=== PATIENT | male | born 1985 | race Caucasian/White ===

== ENCOUNTER 2016-06-14 07:18 | Emergency (ER) | payer MEDICAID ==
[~2016-06-14] VITALS: Wt 106.5 kg
[~2016-06-14 07:18] MED LIST: ENAL10TA78 PO; HYDR-762 PO; IBUP800T25 PO
[2016-06-14 08:30] LABS: BASOPHILS % 0.2 % (0.0-2.0); EOSINOPHILS # 0.1 10^3/ul (0.0-0.5); HEMATOCRIT 49.7 % (42.0-52.0); HEMOGLOBIN 17.1 g/dl (14.0-18.0); LYMPHOCYTES # 2.1 10^3/ul (0.8-2.9); LYMPHOCYTES % 25.7 % (15.0-51.0); MEAN CORPUSCULAR HEMOGLOBIN 30.4 pg (29.0-33.0); MEAN CORPUSCULAR HGB CONC 34.4 g/dl (32.0-37.0); MEAN CORPUSCULAR VOLUME 88.6 fl (82.0-101.0); MEAN PLATELET VOLUME 8.1 fl (7.4-10.4); MONOCYTE # 0.4 10^3/ul (0.3-0.9); MONOCYTES % 5.2 % (0.0-11.0); NEUTROPHIL # 5.4 10^3/ul (1.6-7.5); NEUTROPHILS % 67.9 % (39.0-77.0); PLATELET COUNT 240 10^3/UL (140-440); RED BLOOD COUNT 5.61 10^6/ul (4.70-6.10); RED CELL DISTRIBUTION WIDTH 13.1 % (11.5-14.5)
[2016-06-14] MEDS ORDERED: IBUPROFEN 800 MG TAB PO ONE (08:30)
[2016-06-14 08:32] LABS: CONDITION 1
[2016-06-14 08:37] LABS: ALBUMIN 4.9 g/dl (3.3-4.9)
[2016-06-14 08:38] LABS: POTASSIUM 4.2 mmol/L (3.5-5.1)
[2016-06-14 08:40] LABS: ALBUMIN/GLOBULIN RATIO 1.4; BILIRUBIN,INDIRECT 0.5 mg/dl (0-1.1); BILIRUBIN,TOTAL 0.5 mg/dl (0.2-1.3); CREATININE 1.06 mg/dl (0.61-1.24); TOTAL PROTEIN 8.4 g/dl (6.1-8.1)
--- NOTE | 2016-06-14 08:40 | RADRPT ---
PROCEDURE: CT Abdomen and Pelvis without contrast. CLINICAL INDICATION: Abdominal pain radiating to the back TECHNIQUE: CT scan of the abdomen and pelvis without contrast was performed. The patient was scann ed without intravenous contrast. Coronal and sagittal reformatted images were obtained from the axi al source images. Use of iterative reconstruction technique was employed. Images were reviewed on a high-resolution PACS workstation. images. The calculated radiation dose measures 1175.96 mGy centime ters. The CTDI measures 18.78 mGy. One or more of the following dose reduction techniques were used: - Automated exposure control. - Adjustment of the mA and/or kV according to patient size . - Use of iterative reconstruction technique. Images were reviewed on a high-resolution PACS workstation COMPARISON: Multiple priors most recent from 11/26/2059 FINDINGS: CT abdomen: The lung bases are clear. The heart size is normal, without pericardial thickening or effusion. Th e liver is normal in size and density without focal mass or intrahepatic biliary dilatation. The sp jay is normal in size and homogeneous in density. The stomach is partially collapsed, but is gross ly unremarkable. The pancreas as visualized is normal. The gallbladder and biliary tree are unrem arkable and there is no evidence for biliary dilatation. The adrenal glands are symmetric and lu l. There are 2 calculus seen within the left mid pole of the kidney the largest measuring 3 mm. A 3 mm calculus also seen at the right lower pole of the kidney and a punctate calculus at the mid charlotte e. No evidence for hydronephrosis or hydroureter. No evidence for urolithiasis. The bladder is pa rtially collapsed. There is an approximately 7 mm calculus at the right base of the bladder, unchan ged in appearance. The aorta is of normal caliber. There is no retroperitoneal lymphadenopathy. The brennen hepatis reg ion is clear. The bowel and mesentery, as visualized, are equally unremarkable. CT pelvis: The small bowel loops situated within the pelvis are unremarkable. The pelvic organs are normal. T he pelvic sidewalls and inguinal regions are clear. The sigmoid colon and rectum are not thickened or dilated.. No mass, lymphadenopathy, or free fluid is seen. No acute inflammation is seen. The surrounding osseous structures are remarkable for degenerative spondylosis of the spine. There are scattered bone islands noted about the femoral bilaterally. There is a larger sclerotic lesion with a lucent center in the left intertrochanteric region representing a benign fibro-osseous lesion , no interval change is seen. IMPRESSION: 1. Up to 7 mm bladder calculus seen near the right UVJ junction without hydronephrosis or hydrouret er. The appearance is similar as on the prior study. 2. Additional calculi seen within the kidneys bilaterally. No evidence for hydronephrosis or hydro ureter. 3. Normal unenhanced appearance of the appendix. RPTAT: PP .David Patterson MD, Date Time Electronically viewed and signed by .David Patterson MD, on 06/14/2016 08:40 .d/
[2016-06-14 08:41] LABS: CALCIUM 9.8 mg/dl (8.4-10.2)
[2016-06-14 08:44] LABS: ADD UMIC YES; URINE BILIRUBIN (Dip) NEGATIVE (NEGATIVE); URINE BLOOD (Dip) 1+ (NEGATIVE); URINE COLOR LT. YELLOW (YELLOW); URINE GLUCOSE (Dip) NEGATIVE (NEGATIVE); URINE KETONES (Dip) NEGATIVE (NEGATIVE); URINE LEUKOCYTE ESTERASE (Dip) NEGATIVE (NEGATIVE); URINE NITRITE (Dip) NEGATIVE (NEGATIVE); URINE TOTAL PROTEIN (Dip) NEGATIVE (NEGATIVE); URINE UROBILINOGEN (Dip) 0.2 E.U./dL (0.1-1.0)
[2016-06-14] MEDS ORDERED: IBUP800T25 PO (08:50)
[2016-06-14] MEDS ORDERED: ONDA4TAB14 PO (08:50)
[2016-06-14] MEDS ORDERED: HYDR-902 PO (08:50)
--- NOTE | 2016-06-14 08:58 | ERD ---
ER Documentation Chief Complaint Date/Time DATE: 06/14/16 TIME: 08:55 Chief Complaint LEFT SIDE ABD PAIN X1 WEEK, ON AND OFF NAUSEA HPI 30-year-old male no past medical history other than borderline hypertension presents with left flank pain. He describes colicky left-sided flank pain to the left lower quadrant for approximately 1 week. He denies any testicular pain or swelling. He denies any dysuria urgency or frequency. He does have a history of kidney stones but states that this feels slightly different and the patient had some urinary symptoms during that time. He has not taken anything for pain. He denies any lumbar back pain. ROS All systems reviewed and are negative except as per history of present illness. Medications Home Meds Active Scripts Ondansetron (Ondansetron Odt) 4 Mg Tab.rapdis, 4 MG PO Q6H Y for NAUSEA AND/OR VOMITING, #30 TAB Prov:PRISCILA VAZ MD 06/14/16 Ibuprofen* (Motrin*) 800 Mg Tab, 800 MG PO Q6H Y for PAIN AND OR ELEVATED TEMP, #30 TAB Prov:PRISCILA VAZ MD 06/14/16 Hydrocodone/Acetaminophen ([place] 10-325 Tablet) 1 Each Tablet, 1 TAB PO Q6H Y for PAIN, #12 TAB Prov:PRISCILA VAZ MD 06/14/16 Hydrocodone Bit-Acetaminophen* ([place]*) 10-325 Mg Tablet, 1 TAB PO Q6 Y for PAIN , #20 TAB Prov:MARCELLE HAAS PA-C 11/26/15 Ibuprofen* (Motrin*) 800 Mg Tab, 800 MG PO Q6H Y for PAIN AND OR ELEVATED TEMP, #30 TAB Prov:MARCELLE HAAS PA-C 11/26/15 Reported Medications Enalapril Maleate* (Vasotec*) 10 Mg Tablet, 10 MG PO DAILY, TAB 03/17/14 Allergies Allergies: Coded Allergies: No Known Allergies (Verified Allergy, Mild, 03/18/14) PMhx/Soc History of Surgery: No Anesthesia Reaction: No Hx Neurological Disorder: No Hx Respiratory Disorders: No Hx Cardiac Disorders: No Hx Psychiatric Problems: No Hx Miscellaneous Medical Probl: No Hx Alcohol Use: No Hx Substance Use: No Hx Tobacco Use: No FmHx Family History: No diabetes Physical Exam Vitals Vital Signs Date Time Temp Pulse Resp B/P Pulse Ox O2 Delivery O2 Flow Rate FiO2 06/14/16 07:22 97.5 63 17 147/77 98 Physical Exam General: Well developed, well nourished, no acute distress Head: Normocephalic, atraumatic. Eyes: Pupils equally reactive, EOM intact ENT: Moist mucous membranes Neck: Supple, no lymphadenopathy Respiratory: Lungs clear bilaterally, no distress Cardiovascular: RRR, no murmurs, rubs, or gallops Abdominal: Soft, mild intermittent focal tenderness left lower quadrant without rebound or guarding, no inguinal hernia : Normal descended testicles bilateral without swelling, intact reflexes MSK: No edema, no unilateral swelling, 5/5 strength Neurologic: Alert and oriented, moving all extremities, normal speech, no focal weakness, no cerebellar signs Skin: No rash Psych: Normal mood Result Diagram: 06/14/16 0815 06/14/16 0815 Results 24 hrs Laboratory Tests Test 06/14/16 08:15 Alanine Aminotransferase (ALT/SGPT) 45IU/L Albumin 4.9g/dl Albumin/Globulin Ratio 1.40 Alkaline Phosphatase 76IU/L Anion Gap 19 Aspartate Amino Transf (AST/SGOT) 38IU/L Basophils # 0.010^3/ul Basophils % 0.2% Blood Urea Nitrogen 15mg/dl Calcium Level 9.8mg/dl Carbon Dioxide Level 28mmol/L Chloride Level 102mmol/L Creatinine 1.06mg/dl Direct Bilirubin 0.00mg/dl Eosinophils # 0.110^3/ul Eosinophils % 1.0% Globulin 3.50g/dl Glucose Level 95mg/dl Hematocrit 49.7% Hemoglobin 17.1g/dl Indirect Bilirubin 0.5mg/dl Lipase 124U/L Lymphocytes # 2.110^3/ul Lymphocytes % 25.7% Mean Corpuscular Hemoglobin 30.4pg Mean Corpuscular Hemoglobin Concent 34.4g/dl Mean Corpuscular Volume 88.6fl Mean Platelet Volume 8.1fl Monocytes # 0.410^3/ul Monocytes % 5.2% Neutrophils # 5.410^3/ul Neutrophils % 67.9% Nucleated Red Blood Cells # 0.010^3/ul Nucleated Red Blood Cells % 0.0/100WBC Platelet Count 84480^3/UL Potassium Level 4.2mmol/L Red Blood Count 5.6110^6/ul Red Cell Distribution Width 13.1% Sodium Level 145mmol/L Total Bilirubin 0.5mg/dl Total Protein 8.4g/dl Urine Bilirubin NEGATIVE Urine Clarity CLEAR Urine Color LT. YELLOW Urine Glucose NEGATIVE% Urine Hemoglobin 1+ Urine Ketones NEGATIVE Urine Leukocyte Esterase NEGATIVE Urine Microscopic RBC 5-10/HPF Urine Microscopic WBC 2-5/HPF Urine Nitrite NEGATIVE Urine Specific [place] 1.015 Urine Total Protein NEGATIVE Urine Urobilinogen 0.2 E.U./dL Urine pH 5.5 White Blood Count 8.010^3/ul Current Medications Medications (Trade) Dose Ordered Sig/Shari Route PRN Reason Start Time Stop Time Status Last Admin Dose Admin Ibuprofen (Motrin) 800 mg ONCE ONCE PO 06/14/16 08:30 06/14/16 08:31 DC 06/14/16 08:21 Procedures/MDM EKG, MONITORS, & DIAGNOSTIC IMAGING: CT abdomen and pelvis: IMPRESSION: 1. Up to 7 mm bladder calculus seen near the right UVJ junction without hydronephrosis or hydroureter. The appearance is similar as on the prior study. 2. Additional calculi seen within the kidneys bilaterally. No evidence for hydronephrosis or hydroureter. 3. Normal unenhanced appearance of the appendix. LAB INTERPRETATION: No leukocytosis, no renal failure MEDICAL DECISION MAKING: The patient presents with flank pain that is colicky. He does describe a history of kidney stones with states this feels different. Differential includes UTI, pyelonephritis, ureterolithiasis among others. Consider possible muscular skeletal etiology as well. Low concern for dissection. No evidence of acute testicular process such as torsion, no evidence of hernia. ER COURSE: The patient was given Motrin with improved symptoms. His laboratory testing is unrevealing and CT imaging shows evidence of a bladder stone however this is on the right side. I am not convinced that this is necessarily causing the patient 's pain but it is possible. He has no evidence of complication such as infection, hydronephrosis or renal insufficiency. Outpatient urology referral would be appropriate. The patient will be given pain control medication referral information to primary care physician and primary care clinics at the [facility]. I kept the patient and/or family informed of laboratory and diagnostic imaging results throughout the emergency room course. DISPOSITION PLAN: We discussed follow up with the patient's primary care doctor within 24 to 48 hours as needed. We also discussed return to the emergency room for worsening symptoms or worsening condition. Discharge Medications: Shabbona, Zofran, Motrin We discussed the use of narcotics including avoidance of operating heavy machinery and driving as well as its addictive properties. Departure Diagnosis: Primary Impression: Left flank pain Additional Impressions: Kidney stone Bladder calculus Condition: Stable Patient Instructions: Kidney Stone W/ Colic Referrals: VIKASH NATHAN MD, RICHARD MD [facility] () Usted se haynes hecho un examen mdico de control que le indica que no est en monik condicin que requiera tratamiento urgente en el Departamento de Emergencia. Un estudio ms profundo y el tratamiento de hartman condicin pueden esperar sin ningn riesgo hasta que usted sea atendida/o en el consultorio de hartman mdico o monik cl javier. Es responsabilidad suya arreglar monik dave para el seguimiento del sravanthi. MANEJO DE CONDICIONES NO URGENTES EN EL FUTURO 1) Si usted tiene un mdico de atencin primaria: Usted debera llamar a hartman mdico de atencin primaria antes de venir al departamento de emergencia. Despus de las horas de consultorio, hartman doctor o hartman asociado/a est disponible por telfono. El mdico o enfermero de [place] en el servicio telefnico puede asesorarle por anastacio medio para atender el problema, o sravanthi contrario se puede programar monik dave. 2) Si usted no tiene un mdico de atencin primaria: Llame al mdico o clnica de referencia que aparece abajo brandy las horas de consultorio para hacer monik dave para que le vean. CLINICAS: [facility] 624 [phone] [address] [facility] 996 [phone] [address] [facility] 227 [phone] [address] [facility] [phone] [address] [facility]. [facility] 721 [phone] [address] [facility]. [phone] [address] [facility]. [facility] () Usted se haynes hecho un examen mdico de control que le indica que no est en monik condicin que requiera tratamiento urgente en el Departamento de Emergencia. Un estudio ms profundo y el tratamiento de hartman condicin pueden esperar sin ningn riesgo hasta que usted sea atendida/o en el consultorio de hartman mdico o monik cl javier. Es responsabilidad suya arreglar monki dave para el seguimiento del sravanthi. MANEJO DE CONDICIONES NO URGENTES EN EL FUTURO 1) Si usted tiene un mdico de atencin primaria: Usted debera llamar a hartman mdico de atencin primaria antes de venir al departamento de emergencia. Despus de las horas de consultorio, hartman doctor o hartman asociado/a est disponible por telfono. El mdico o enfermero de [place] en el servicio telefnico puede asesorarle por anastacio medio para atender el problema, o sravanthi contrario se puede programar monik dave. 2) Si usted no tiene un mdico de atencin primaria: Llame al mdico o condado institucions de referencia que aparece abajo brandy las horas de consultorio para hacer monik dave para que le vean. SI USTED NO PUEDE PAGAR PARA NATHANIEL UN MEDICO puede ir a: [facility] [address] [place] [address] [facility] [address] [place] [address] [facility] [address] [place] [address] PARA [facility] [address] [place] [address] [facility] Urology for kidney stone Additional Instructions: It is very important that you follow-up with a urologist as you may require lithotripsy or retrieval of the stone if symptoms do not improve. Llame al doctor nombrado davion (Referral Sources) MAANA y letha monik DAVE PARA DENTRO DE MONIK SEMANA. Dgale a la secretaria que nosotros le instruimos hacer esta dave.Avise o llame si hartman condicin se empeora antes de la dave. PRISCILA VAZ MD Jun 14, 2016 08:58
== END 2016-06-14 09:36 | disposition home or self-care (01) ==
LOC: FTE 07:18
DX: R10.9 Unspecified abdominal pain (principal); N20.0 Calculus of kidney; N21.0 Calculus in bladder
CPT/HCPCS: 36415; 74176; 80053; 81001; 83690; 85025; Z7502; Z7610; 81003

== ENCOUNTER 2016-10-08 18:19 | Emergency (ER) | payer MEDICAID, OTHER ==
[~2016-10-08] VITALS: Ht 182.9 cm; Wt 111.5 kg
[~2016-10-08 18:19] MED LIST changes: +HYDR-902 PO; +ONDA4TAB14 PO
[2016-10-08 18:22] VITALS: Ht 182.9 cm; Wt 111.5 kg
[2016-10-08] MEDS ORDERED: KETOROLAC 30 MG INJ IV STA (18:46)
--- NOTE | 2016-10-08 18:55 | ERD ---
ER Documentation Chief Complaint Date/Time DATE: 10/08/16 TIME: 18:53 Chief Complaint Paztient complains of back and abdominal pain since yesterday HPI 31-year-old male with history of kidney stones comes in with right-sided flank pain that started yesterday afternoon after lifting heavy. Patient's pain is described as moderate and sharp and starts in the right flank and radiates to the right upper quadrant. There is no associated fevers, chills, vomiting or diarrhea. ROS All systems reviewed and are negative except as per history of present illness. Medications Home Meds Active Scripts Tamsulosin Hcl* (Flomax*) 0.4 Mg Cap.er.24h, 0.4 MG PO BID, #30 CAP Prov:RONNIE ZEPEDA PA-C 10/08/16 Naproxen* (Naprosyn*) 500 Mg Tablet, 500 MG PO BID Y for PAIN AND/OR INFLAMMATION, #30 TAB Prov:RONNIE ZEPEDA PA-C 10/08/16 Ondansetron (Ondansetron Odt) 4 Mg Tab.rapdis, 4 MG PO Q6H Y for NAUSEA AND/OR VOMITING, #30 TAB Prov:PRISCILA VAZ MD 06/14/16 Ibuprofen* (Motrin*) 800 Mg Tab, 800 MG PO Q6H Y for PAIN AND OR ELEVATED TEMP, #30 TAB Prov:PRISCILA VAZ MD 06/14/16 Hydrocodone/Acetaminophen (Ceres 10-325 Tablet) 1 Each Tablet, 1 TAB PO Q6H Y for PAIN, #12 TAB Prov:PRISCILA VAZ MD 06/14/16 Hydrocodone Bit-Acetaminophen* (Ceres*) 10-325 Mg Tablet, 1 TAB PO Q6 Y for PAIN , #20 TAB Prov:MARCELLE HAAS PA-C 11/26/15 Ibuprofen* (Motrin*) 800 Mg Tab, 800 MG PO Q6H Y for PAIN AND OR ELEVATED TEMP, #30 TAB Prov:MARCELLE HAAS PA-C 11/26/15 Reported Medications Enalapril Maleate* (Vasotec*) 10 Mg Tablet, 10 MG PO DAILY, TAB 03/17/14 Allergies Allergies: Coded Allergies: No Known Allergies (Verified Allergy, Mild, 10/08/16) PMhx/Soc History of Surgery: No Anesthesia Reaction: No Hx Neurological Disorder: No Hx Respiratory Disorders: No Hx Cardiac Disorders: Yes (HTN) Hx Psychiatric Problems: No Hx Miscellaneous Medical Probl: No Hx Alcohol Use: Yes (SOCIALLY) Hx Substance Use: No Hx Tobacco Use: No Smoking Status: Never smoker Physical Exam Vitals Vital Signs Date Time Temp Pulse Resp B/P Pulse Ox O2 Delivery O2 Flow Rate FiO2 10/08/16 18:22 98.3 84 20 155/91 97 Physical Exam General: Well-developed, well-nourished. The patient appears in no acute distress. HEENT: Head is normocephalic, atraumatic. No scleral icterus. Neck: Supple. Nontender. Lungs: Clear to auscultation. Normal air movement. Heart: Regular rate and rhythm. S1 and S2 are normal. No murmurs, gallops, or rubs. Abdomen: Soft, nontender, nondistended. Bowel sounds are normoactive. Diffuse soft tissue tenderness over the right flank and right upper quadrant, no CVA tenderness. Extremities: No clubbing or cyanosis. Normal pulses. Moving extremities x 4. No weakness. Neurologic: Alert and oriented 3. No focal deficits. Skin: Normal turgor. No rash or lesions. Result Diagram: 10/08/16190410/08/161904 Results 24 hrs Laboratory Tests Test 10/08/16 18:50 10/08/16 19:05 Urine Color LT. YELLOW Urine Clarity CLEAR Urine pH 5.5 Urine Specific [place] <=1.005 Urine Ketones NEGATIVE Urine Nitrite NEGATIVE Urine Bilirubin NEGATIVE Urine Urobilinogen 0.2 E.U./dL Urine Leukocyte Esterase NEGATIVE Urine Microscopic RBC 2-5/HPF Urine Microscopic WBC NONE SEEN/HPF Urine Hemoglobin 1+ Urine Glucose NEGATIVE% Urine Total Protein NEGATIVE White Blood Count 10.710^3/ul Red Blood Count 5.4310^6/ul Hemoglobin 16.1g/dl Hematocrit 47.4% Mean Corpuscular Volume 87.3fl Mean Corpuscular Hemoglobin 29.7pg Mean Corpuscular Hemoglobin Concent 34.0g/dl Red Cell Distribution Width 12.1% Platelet Count 98585^3/UL Mean Platelet Volume 9.8fl Neutrophils % 67.5% Lymphocytes % 24.1% Monocytes % 6.4% Eosinophils % 0.9% Basophils % 0.3% Nucleated Red Blood Cells % 0.0/100WBC Neutrophils # 7.210^3/ul Lymphocytes # 2.610^3/ul Monocytes # 0.710^3/ul Eosinophils # 0.110^3/ul Basophils # 0.010^3/ul Nucleated Red Blood Cells # 0.010^3/ul Sodium Level 142mmol/L Potassium Level 4.3mmol/L Chloride Level 105mmol/L Carbon Dioxide Level 26mmol/L Anion Gap 15 Blood Urea Nitrogen 18mg/dl Creatinine 1.12mg/dl Glucose Level 89mg/dl Calcium Level 10.3mg/dl Total Bilirubin 0.1mg/dl Direct Bilirubin 0.00mg/dl Indirect Bilirubin 0.1mg/dl Aspartate Amino Transf (AST/SGOT) 42IU/L Alanine Aminotransferase (ALT/SGPT) 51IU/L Alkaline Phosphatase 92IU/L Total Protein 7.8g/dl Albumin 5.0g/dl Globulin 2.80g/dl Albumin/Globulin Ratio 1.78 Lipase 144U/L Current Medications Medications (Trade) Dose Ordered Sig/Shari Route PRN Reason Start Time Stop Time Status Last Admin Dose Admin Ketorolac Tromethamine (Toradol) 30 mg ONCE STAT IV 10/08/16 18:46 10/08/16 18:48 DC 10/08/16 19:09 DIAGNOSTIC IMAGING REPORT Patient: YUNG TOBAR : 1985 Age: 31 Sex: M MR #: [id number] DOS: 10/08/16 1846 Ordering MD: RONNIE ZEPEDA PA-C Location: [facility] Room/Bed: PROCEDURE: CT abdomen and pelvis without contrast and with 3-D reconstructions CLINICAL INDICATION: Right flank pain TECHNIQUE: CT scan of the abdomen and pelvis without contrast was performed on a multislice CT scanner. 3-D sagittal and coronal reformatted images were obtained from the axial source images. DLP 1348.79 mGycm CTDIvol 20.79 mGy COMPARISON: CT abdomen/pelvis from 06/14/2016 FINDINGS: The visualized lung bases are unremarkable. The liver is homogenous in attenuation. There are no focal liver lesions. There is no intrahepatic or extrahepatic biliary ductal dilatation. The gallbladder is contracted. The spleen, pancreas, and adrenal glands are within normal limits. The kidneys are symmetric and without focal lesions. There are 2 punctate nonobstructive calculi in the right kidney. There are 2 punctate nonobstructive calculi in the left kidney. These are not significantly changed compared to the prior CT study from 06/14/2016. There is no hydronephrosis bilaterally. There are no dilated or thickened loops of bowel. The appendix is within normal limits. The aorta is within normal limits. There are no enlarged mesenteric, periaortic , or retroperitoneal lymph nodes. The bladder is within normal limits. The calculus seen previously in the dependent aspect of the bladder on the prior CT study is no longer visualized. There is no free air. There is no free fluid. There are no enlarged intrapelvic or inguinal lymph nodes. A 2.3 cm sclerotic lesion with a lucent center is again noted in the proximal left femur which is likely a fibro osseous lesion. Several adjacent sclerotic lesions measuring up to 6 mm are identified which are unchanged and are likely bone islands. Several similar sclerotic lesions measuring up to 1 cm are identified in the proximal right femur and the right side of the sacrum. IMPRESSION: Punctate nonobstructive bilateral renal calculi are again identified which are not significantly changed compared to the prior CT study from 06/14/2016. There is no hydronephrosis bilaterally. The bladder calculus seen previously is no longer visualized. Normal appendix. RPTAT: EE Physician [place] Date Time Electronically viewed and signed by Edenilson Marina Physician on 10/08/2016 19:15 RA/ CC: RONNIE ZEPEDA PA-C Procedures/MDM ED course: Patient an IV line established, blood and urine were obtained. He was given Toradol 30 mg IV. Patient's pain is reassessed, he states that he is feeling much better at this time. MDM: 31-year-old male comes in with right-sided flank pain, it is reproducible with palpation, likely musculoskeletal. Patient has a history of kidney stones , CT abdomen pelvis was also ordered that shows similar findings to previous CAT scan, stable kidney stones that are punctate on the right and the left, unlikely causing him pain. He was medicated with Toradol in the emergency department with significant improvement of pain. Lab work does not show any evidence of leukocytosis, renal insufficiency or failure. No evidence of urinary tract infection. I will give him anti-inflammatories as well as Flomax. I have asked him to recheck with his primary care doctor in the next couple of days. Return for any worsening symptoms including fever. Departure Diagnosis: Primary Impression: Kidney stone Additional Impression: Injury of back Condition: Good RONNIE ZEPEDA PA-C Oct 08, 2016 18:55
--- NOTE | 2016-10-08 19:15 | RADRPT ---
PROCEDURE: CT abdomen and pelvis without contrast and with 3-D reconstructions CLINICAL INDICATION: Right flank pain TECHNIQUE: CT scan of the abdomen and pelvis without contrast was performed on a multislice CT [facility]. 3-D sagittal and coronal reformatted images were obtained from the axial source images. DLP 1348.79 mGycm CTDIvol 20.79 mGy COMPARISON: CT abdomen/pelvis from 06/14/2016 FINDINGS: The visualized lung bases are unremarkable. The liver is homogenous in attenuation. There are no focal liver lesions. There is no intrahepatic or extrahepatic biliary ductal dilatation. The gallbladder is contracted. The spleen, pancreas, and adrenal glands are within normal limits. The kidneys are symmetric and without focal lesions. There are 2 punctate nonobstructive calculi in the right kidney. There are 2 punctate nonobstructive calculi in the left kidney. These are not sig nificantly changed compared to the prior CT study from 06/14/2016. There is no hydronephrosis bilat erally. There are no dilated or thickened loops of bowel. The appendix is within normal limits. The aorta is within normal limits. There are no enlarged mesenteric, periaortic, or retroperitoneal lymph nodes. The bladder is within normal limits. The calculus seen previously in the dependent aspect of the sourav dder on the prior CT study is no longer visualized. There is no free air. There is no free fluid. There are no enlarged intrapelvic or inguinal lymph nodes. A 2.3 cm sclerotic lesion with a lucent center is again noted in the proximal left femur which is li loly a fibro osseous lesion. Several adjacent sclerotic lesions measuring up to 6 mm are identified which are unchanged and are likely bone islands. Several similar sclerotic lesions measuring up to 1 cm are identified in the proximal right femur and the right side of the sacrum. IMPRESSION: Punctate nonobstructive bilateral renal calculi are again identified which are not significantly spenser nged compared to the prior CT study from 06/14/2016. There is no hydronephrosis bilaterally. The bladder calculus seen previously is no longer visualized. Normal appendix. RPTAT: EE Edenilson Marina, Physician Date Time Electronically viewed and signed by Edenilson Marina, Physician on 10/08/2016 19:15 RA/
[2016-10-08 19:19] LABS: ADD SCAN DIFF NO
[2016-10-08 19:21] LABS: BASOPHILS % 0.3 % (0.0-2.0); EOSINOPHILS # 0.1 10^3/ul (0.0-0.5); EOSINOPHILS % 0.9 % (0.0-7.0); HEMATOCRIT 47.4 % (42.0-52.0); HEMOGLOBIN 16.1 g/dl (14.0-18.0); LYMPHOCYTES # 2.6 10^3/ul (0.8-2.9); LYMPHOCYTES % 24.1 % (15.0-51.0); MEAN CORPUSCULAR HEMOGLOBIN 29.7 pg (29.0-33.0); MEAN CORPUSCULAR VOLUME 87.3 fl (82.0-101.0); MEAN PLATELET VOLUME 9.8 fl (7.4-10.4); MONOCYTE # 0.7 10^3/ul (0.3-0.9); MONOCYTES % 6.4 % (0.0-11.0); NEUTROPHIL # 7.2 10^3/ul (1.6-7.5); NEUTROPHILS % 67.5 % (39.0-77.0); PLATELET COUNT 266 10^3/UL (140-415); RED BLOOD COUNT 5.43 10^6/ul (4.70-6.10); RED CELL DISTRIBUTION WIDTH 12.1 % (11.5-14.5); WHITE BLOOD COUNT 10.7 10^3/ul (4.8-10.8)
[2016-10-08 19:22] LABS: ADD UMIC YES; UR BILIRUBIN (Dip) NEGATIVE (NEGATIVE); UR BLOOD (Dip) 1+ (NEGATIVE); UR CLARITY CLEAR (CLEAR); UR COLOR LT. YELLOW (YELLOW); UR GLUCOSE (Dip) NEGATIVE (NEGATIVE); UR KETONES (Dip) NEGATIVE (NEGATIVE); UR LEUKOCYTE ESTERASE (Dip) NEGATIVE (NEGATIVE); UR NITRITE (Dip) NEGATIVE (NEGATIVE); UR TOTAL PROTEIN (Dip) NEGATIVE (NEGATIVE); UR UROBILINOGEN (Dip) 0.2 E.U./dL (0.1-1.0)
[2016-10-08 19:53] LABS: ALBUMIN/GLOBULIN RATIO 1.78; BILIRUBIN,INDIRECT 0.1 mg/dl (0-1.1); BILIRUBIN,TOTAL 0.1 mg/dl (0.2-1.3); CALCIUM 10.3 mg/dl (8.4-10.2); CREATININE 1.12 mg/dl (0.61-1.24); POTASSIUM 4.3 mmol/L (3.5-5.1); TOTAL PROTEIN 7.8 g/dl (6.1-8.1)
[2016-10-08] MEDS ORDERED: TAMS-14 PO (20:26)
[2016-10-08] MEDS ORDERED: NAPR-260 PO (20:26)
[2016-10-08 20:50] VITALS: BP 138/91; PULSE 75; RESP 18; TEMP 98.2
== END 2016-10-08 20:52 | disposition home or self-care (01) ==
LOC: FTE 18:19
DX: N20.0 Calculus of kidney (principal); S39.92XA Unspecified injury of lower back, initial encounter; I10 Essential (primary) hypertension; X50.0XXA Overexertion from strenuous movement or load, initial encounter; Y92.9 Unspecified place or not applicable
CPT/HCPCS: 74176; 80053; 81001; 83690; 85025; J1885; 36415; 96374

== ENCOUNTER 2017-01-02 13:07 | Emergency (ER) | payer MEDICAID ==
[~2017-01-02] VITALS: Ht 180.3 cm; Wt 109.5 kg
[~2017-01-02 13:07] MED LIST changes: +NAPR-260 PO; +TAMS-14 PO
[2017-01-02 13:14] VITALS: Ht 180.3 cm; Wt 109.5 kg
[2017-01-02 14:51] LABS: BASOPHIL # 0.1 10^3/ul (0.0-0.1); BASOPHILS % 0.5 % (0.0-2.0); EOSINOPHILS # 0.4 10^3/ul (0.0-0.5); EOSINOPHILS % 3.1 % (0.0-7.0); HEMATOCRIT 48.2 % (42.0-52.0); HEMOGLOBIN 16.5 g/dl (14.0-18.0); LYMPHOCYTES # 3.3 10^3/ul (0.8-2.9); LYMPHOCYTES % 26.8 % (15.0-51.0); MEAN CORPUSCULAR HEMOGLOBIN 30.1 pg (29.0-33.0); MEAN CORPUSCULAR HGB CONC 34.2 g/dl (32.0-37.0); MEAN CORPUSCULAR VOLUME 87.8 fl (82.0-101.0); MEAN PLATELET VOLUME 9.7 fl (7.4-10.4); MONOCYTE # 0.9 10^3/ul (0.3-0.9); MONOCYTES % 7.1 % (0.0-11.0); NEUTROPHILS % 61.7 % (39.0-77.0); PLATELET COUNT 270 10^3/UL (140-415); RED BLOOD COUNT 5.49 10^6/ul (4.70-6.10); RED CELL DISTRIBUTION WIDTH 12.3 % (11.5-14.5); WHITE BLOOD COUNT 12.4 10^3/ul (4.8-10.8)
[2017-01-02 14:54] LABS: ADD UMIC YES; UR ASCORBIC ACID NEGATIVE (NEGATIVE); UR BILIRUBIN (Dip) NEGATIVE (NEGATIVE); UR BLOOD (Dip) 1+ mg/dL (NEGATIVE); UR CLARITY CLEAR (CLEAR); UR COLOR STRAW (YELLOW); UR GLUCOSE (Dip) NEGATIVE (NEGATIVE); UR KETONES (Dip) NEGATIVE (NEGATIVE); UR LEUKOCYTE ESTERASE (Dip) NEGATIVE Leu/ul (NEGATIVE); UR NITRITE (Dip) NEGATIVE (NEGATIVE); UR RBC 2 /HPF (0-5); UR SPECIFIC GRAVITY (Dip) 1.005 (1.003-1.030); UR TOTAL PROTEIN (Dip) NEGATIVE (NEGATIVE); UR UROBILINOGEN (Dip) NEGATIVE (NEGATIVE)
[2017-01-02] MEDS ORDERED: HYDROCODONE/APAP (10/325) TAB PO ONE (15:00)
--- NOTE | 2017-01-02 15:05 | RADRPT ---
PROCEDURE: Retroperitoneal US. CLINICAL INDICATION: Flank pain TECHNIQUE: Multiple sonographic images of the kidneys and retroperitoneum were obtained. The imag es were reviewed on a PACS workstation. COMPARISON: 10/08/2016 FINDINGS: The kidneys are normal in size, contour, cortical thickness and cortical echogenicity. The right kidney measures 10.5 cm. The left kidney measures 11.9 cm. There is a 6 mm stone in the lower pole of the right kidney. There is no evidence for hydronephrosis . The urinary bladder is partially distended and grossly unremarkable. RPTAT: AA IMPRESSION: Right nephrolithiasis. No evidence of hydronephrosis. .Kareem Morales MD, Date Time Electronically viewed and signed by .Kareem Mroales MD, MD on 01/02/2017 15:05 .S/
[2017-01-02 15:15] LABS: ALBUMIN 4.6 g/dl (3.3-4.9); ALBUMIN/GLOBULIN RATIO 1.43; BILIRUBIN,INDIRECT 0.4 mg/dl (0-1.1); BILIRUBIN,TOTAL 0.4 mg/dl (0.2-1.3); CREATININE 1.16 mg/dl (0.61-1.24); POTASSIUM 4.7 mmol/L (3.5-5.1); TOTAL PROTEIN 7.8 g/dl (6.1-8.1)
--- NOTE | 2017-01-02 15:17 | ERD ---
ER Documentation Chief Complaint Date/Time DATE: 01/02/17 TIME: 15:15 Chief Complaint CAME IN VIA INTAKE DUE TO PAINFUL URINATION SINCE YESTERDAY HPI Patient is a 31-year-old male who presents with left-sided flank pain that he has had since yesterday. He has had kidney stones in the past. He also admits to dysuria and increased urinary frequency. Denies any hematuria. Denies any fever, nausea, vomiting. ROS All systems reviewed and are negative except as per history of present illness. Medications Home Meds Active Scripts Tamsulosin Hcl* (Flomax*) 0.4 Mg Cap.er.24h, 0.4 MG PO BID, #30 CAP Prov:RONNIE ZEPEDA PA-C 10/08/16 Naproxen* (Naprosyn*) 500 Mg Tablet, 500 MG PO BID Y for PAIN AND/OR INFLAMMATION, #30 TAB Prov:RONNIE ZEPEDA PA-C 10/08/16 Ondansetron (Ondansetron Odt) 4 Mg Tab.rapdis, 4 MG PO Q6H Y for NAUSEA AND/OR VOMITING, #30 TAB Prov:PRISCILA VAZ MD 06/14/16 Ibuprofen* (Motrin*) 800 Mg Tab, 800 MG PO Q6H Y for PAIN AND OR ELEVATED TEMP, #30 TAB Prov:PRISCILA VAZ MD 06/14/16 Hydrocodone/Acetaminophen (Croghan 10-325 Tablet) 1 Each Tablet, 1 TAB PO Q6H Y for PAIN, #12 TAB Prov:PRISCILA VAZ MD 06/14/16 Hydrocodone Bit-Acetaminophen* (Croghan*) 10-325 Mg Tablet, 1 TAB PO Q6 Y for PAIN , #20 TAB Prov:MARCELLE HAAS PA-C 11/26/15 Ibuprofen* (Motrin*) 800 Mg Tab, 800 MG PO Q6H Y for PAIN AND OR ELEVATED TEMP, #30 TAB Prov:MARCELLE HAAS PA-C 11/26/15 Reported Medications Enalapril Maleate* (Vasotec*) 10 Mg Tablet, 10 MG PO DAILY, TAB 03/17/14 Allergies Allergies: Coded Allergies: No Known Allergies (Verified Allergy, Mild, 10/08/16) PMhx/Soc Medical and Surgical Hx: pt denies Surgical Hx History of Surgery: No Anesthesia Reaction: No Hx Neurological Disorder: No Hx Respiratory Disorders: No Hx Cardiac Disorders: Yes (HTN) Hx Psychiatric Problems: No Hx Miscellaneous Medical Probl: No Hx Alcohol Use: Yes (SOCIALLY) Hx Substance Use: No Hx Tobacco Use: No FmHx Family History: No diabetes Physical Exam Vitals Vital Signs Date Time Temp Pulse Resp B/P Pulse Ox O2 Delivery O2 Flow Rate FiO2 01/02/17 13:14 97.8 75 18 138/88 98 Physical Exam INITIAL VITAL SIGNS: Reviewed by me GENERAL: Awake, alert and oriented x 4, well appearing, nontoxic, speaking in full sentences. No acute distress HEAD: Atraumatic EYES: EOMI. PERRL. NECK: Supple. No masses. Full range of motion. No meningismus. No midline tenderness. RESPIRATORY: Clear to auscultation bilaterally. Symmetric chest wall rise. No wheezing or rales. No accessory muscle use. CV: Regular rate and rhythm. No murmurs, rubs, or gallops. ABDOMEN: Soft, non-distended. Nontender. Negative [place]. Negative McBurneys point tenderness. No CVA tenderness bilaterally. No guarding. No rebound. : Deffered. Result Diagram: 01/02/17 1444 01/02/17 1444 Results 24 hrs Laboratory Tests Test 01/02/17 14:38 01/02/17 14:44 Urine Color STRAW Urine Clarity CLEAR Urine pH 6.0 Urine Specific [place] 1.005 Urine Ketones NEGATIVEmg/dL Urine Nitrite NEGATIVEmg/dL Urine Bilirubin NEGATIVEmg/dL Urine Urobilinogen NEGATIVEmg/dL Urine Leukocyte Esterase NEGATIVELeu/ul Urine Microscopic RBC 2/HPF Urine Microscopic WBC 0/HPF Urine Hemoglobin 1+mg/dL Urine Glucose NEGATIVEmg/dL Urine Total Protein NEGATIVEmg/dl White Blood Count 12.410^3/ul Red Blood Count 5.4910^6/ul Hemoglobin 16.5g/dl Hematocrit 48.2% Mean Corpuscular Volume 87.8fl Mean Corpuscular Hemoglobin 30.1pg Mean Corpuscular Hemoglobin Concent 34.2g/dl Red Cell Distribution Width 12.3% Platelet Count 44510^3/UL Mean Platelet Volume 9.7fl Neutrophils % 61.7% Lymphocytes % 26.8% Monocytes % 7.1% Eosinophils % 3.1% Basophils % 0.5% Nucleated Red Blood Cells % 0.0/100WBC Neutrophils # (Manual) 7.710^3/ul Lymphocytes # 3.310^3/ul Monocytes # 0.910^3/ul Eosinophils # 0.410^3/ul Basophils # 0.110^3/ul Nucleated Red Blood Cells # 0.010^3/ul Sodium Level 139mmol/L Potassium Level 4.7mmol/L Chloride Level 104mmol/L Carbon Dioxide Level 26mmol/L Anion Gap 14 Blood Urea Nitrogen 16mg/dl Creatinine 1.16mg/dl Glucose Level 88mg/dl Calcium Level 10.0mg/dl Total Bilirubin 0.4mg/dl Direct Bilirubin 0.00mg/dl Indirect Bilirubin 0.4mg/dl Aspartate Amino Transf (AST/SGOT) 48IU/L Alanine Aminotransferase (ALT/SGPT) 50IU/L Alkaline Phosphatase 70IU/L Total Protein 7.8g/dl Albumin 4.6g/dl Globulin 3.20g/dl Albumin/Globulin Ratio 1.43 Lipase 81U/L Current Medications Medications (Trade) Dose Ordered Sig/Shari Route PRN Reason Start Time Stop Time Status Last Admin Dose Admin Acetaminophen/ Hydrocodone Bitart (Croghan (10/325)) 1 tab ONCE ONCE PO 01/02/17 15:00 01/02/17 15:01 DC 01/02/17 14:43 Procedures/MDM Patient has dysuria and flank pain. No CVA tenderness on exam. Patients is alert, oriented, well appearing, and in no distress with normal vital signs. There is no fever, tachycardia, or tachypnea. The differential diagnosis includes but is not limited to appendicitis, cholelithiasis, cholecystitis, pancreatitis, hepatitis, gastritis, peptic ulcer disease, bowel obstruction, diverticulitis, renal disease including stones, torsion, AAA, pyelonephritis, and others. Patient has white blood cell count of 12.4. Labs otherwise unremarkable. Ultrasound shows 6 mm stone on the left right however it is not in the ureter and there is no hydronephrosis.Patient will be discharged with pain medication and Cipro. Patient counseled regarding my diagnostic impression and care plan. Prior to discharge all questions answered. Pt agrees with treatment plan and understands strict return precautions. Pt is instructed to follow up with primary care provider within 24-48 hours. Precautionary instructions provided including instructions to return to the ER if not improving or for any worsening or changing symptoms or concerns. Departure Diagnosis: Primary Impression: Biliary colic Additional Impression: Dysuria Condition: Stable MARCELLE HAAS PA-C Jan 02, 2017 15:17
[2017-01-02] MEDS ORDERED: HYDR-906 PO (15:19)
[2017-01-02] MEDS ORDERED: CIPR500T4 PO (15:19)
[2017-01-02] MEDS ORDERED: IBUP800T25 PO (15:19)
[2017-01-02 15:24] VITALS: BP 129/68; PULSE 66; RESP 18; TEMP 98.5
== END 2017-01-02 16:10 | disposition home or self-care (01) ==
LOC: FTE 13:07
DX: K80.50 Calculus of bile duct without cholangitis or cholecystitis without obstruction (principal); R30.0 Dysuria; I10 Essential (primary) hypertension
CPT/HCPCS: 36415; 76775; 80053; 81001; 83690; 85025; Z7502; Z7610

== ENCOUNTER 2017-06-17 09:31 | Emergency (ER) | END 2017-06-17 15:10 | disposition home or self-care (01) ==

== ENCOUNTER 2018-11-10 11:45 | Emergency (ER) | payer SELFPAY ==
[~2018-11-10] VITALS: Ht 182.9 cm; Wt 116.5 kg
[~2018-11-10 11:45] MED LIST changes: -ENAL10TA78 PO; -HYDR-762 PO; -HYDR-902 PO; +IBUP-1542 PO; -IBUP800T25 PO; +LISI10TA2 PO; -NAPR-260 PO; -ONDA4TAB14 PO; +POLY17PO6 PO; -TAMS-14 PO
[2018-11-10 11:49] VITALS: BP 142/85; PULSE 91; RESP 24; Ht 182.9 cm; Wt 116.5 kg
[2018-11-10] MEDS ORDERED: SOD CHLORIDE 0.9% 1,000 ML IV STA (12:09)
[2018-11-10] MEDS ORDERED: KETOROLAC 30 MG INJ IV STA (12:09)
[2018-11-10] MEDS ORDERED: ONDANSETRON 4 MG INJ IV STA (12:09)
[2018-11-10] MEDS ORDERED: IBUP-1542 PO (13:42)
--- NOTE | 2018-11-10 13:50 | ERD ---
ER Documentation Chief Complaint Chief Complaint LEFT QUADRANT PAIN RADIATING TO THE BACK HPI Patient is a 33-year-old male, with past medical history of nephrolithiasis, who presents to the ER for concerns of left-sided flank pain which started this morning. Patient states he was at work and developed sudden pain in his left flank which is radiating to his left lower quadrant. Patient states when he urinated he felt severe pain. He denies any fevers, chills, nausea or vomiting. Pain is intermittently improved. Patient denies any chest pain, shortness of breath, diarrhea, hematuria, bloody stools. ROS All systems reviewed and are negative except as per history of present illness. Medications Home Meds Active Scripts Ibuprofen* (Motrin*) 600 Mg Tab, 600 MG PO Q6, #30 TAB Prov:BHAVANI CONNOR PA-C 11/10/18 Polyethylene Glycol* (Miralax*) 17 Gm Powd.pack, 17 GM PO DAILY, #7 Prov:ABDULAZIZ MOON MD 06/17/17 Ibuprofen* (Motrin*) 600 Mg Tab, 600 MG PO Q6H PRN for PAIN AND OR ELEVATED TEMP, #30 TAB Prov:ABDULAZIZ MOON MD 06/17/17 Reported Medications Lisinopril* (Lisinopril*) 10 Mg Tablet, 10 MG PO DAILY, #30 TAB 06/17/17 Allergies Allergies: Coded Allergies: No Known Allergies (Verified Allergy, Mild, 10/08/16) PMhx/Soc History of Surgery: No Anesthesia Reaction: No Hx Neurological Disorder: No Hx Respiratory Disorders: No Hx Cardiac Disorders: Yes (HTN) Hx Psychiatric Problems: No Hx Miscellaneous Medical Probl: Yes (KIDNEY STONES) Hx Alcohol Use: Yes (SOCIALLY) Hx Substance Use: No Hx Tobacco Use: No FmHx Family History: No diabetes Physical Exam Vitals Vital Signs Date Temp Pulse Resp B/P (MAP) Pulse Ox O2 O2 Flow FiO2 Time Delivery Rate 11/10/18 97.9 91 24 142/85 96 11:49 (104) Physical Exam GENERAL: Well-developed, well-nourished male. Appears in no acute distress. HEAD: Normocephalic, atraumatic. EYES: Pupils are equally reactive bilaterally. EOMs grossly intact. No conjunctival erythema. ENT: Moist mucous membranes. No uvula deviation. No kissing tonsils. NECK: Supple. No meningismus. Normal range of motion of the neck. LUNG: Clear to auscultation bilaterally. No rhonchi, wheezing, rales or coarse breath sounds. HEART: Regular rate and rhythm. No murmurs, rubs or gallops. ABDOMEN: No scars, ecchymosis or rashes noted. Soft, and nondistended. Tender to palpation of the left lower quadrant. Positive bowel sounds in all four quadrants. No rebound tenderness, no guarding. (-) McBurney's point tenderness. Left-sided CVA tenderness. BACK: No midline tenderness. EXTREMITIES: Equal pulses bilaterally. No peripheral clubbing, cyanosis or edema. No unilateral leg swelling. NEUROLOGIC: Alert and oriented. Moving all four extremities without any difficulty. Normal speech. Steady gait. SKIN: Normal color. Warm and dry. No rashes or lesions. Result Diagram: 11/10/18 1216 11/10/18 1216 Results 24 hrs Laboratory Tests Test 11/10/18 12:16 White Blood Count 11.8 10^3/ul Red Blood Count 5.28 10^6/ul Hemoglobin 15.1 g/dl Hematocrit 46.6 % Mean Corpuscular Volume 88.3 fl Mean Corpuscular Hemoglobin 28.6 pg Mean Corpuscular Hemoglobin Concent 32.4 g/dl Red Cell Distribution Width 13.1 % Platelet Count 246 10^3/UL Mean Platelet Volume 9.5 fl Immature Granulocytes % 2.000 % Neutrophils % 56.0 % Lymphocytes % 32.6 % Monocytes % 8.6 % Eosinophils % 0.4 % Basophils % 0.4 % Nucleated Red Blood Cells % 0.0 /100WBC Immature Granulocytes # 0.240 10^3/ul Neutrophils # 6.6 10^3/ul Lymphocytes # 3.8 10^3/ul Monocytes # 1.0 10^3/ul Eosinophils # 0.1 10^3/ul Basophils # 0.1 10^3/ul Nucleated Red Blood Cells # 0.0 10^3/ul Urine Color COLORLESS Urine Clarity CLEAR Urine pH 6.0 Urine Specific [place] 1.003 Urine Ketones NEGATIVE mg/dL Urine Nitrite NEGATIVE mg/dL Urine Bilirubin NEGATIVE mg/dL Urine Urobilinogen NEGATIVE mg/dL Urine Leukocyte Esterase NEGATIVE [place]/ul Urine Microscopic RBC 0 /HPF Urine Microscopic WBC 0 /HPF Urine Hemoglobin 1+ mg/dL Urine Glucose NEGATIVE mg/dL Urine Total Protein NEGATIVE mg/dl Sodium Level 139 mmol/L Potassium Level 3.9 mmol/L Chloride Level 104 mmol/L Carbon Dioxide Level 24 mmol/L Anion Gap 11 Blood Urea Nitrogen 20 mg/dl Creatinine 1.02 mg/dl Est Glomerular Filtrat Rate mL/min > 60 mL/min Glucose Level 90 mg/dl Calcium Level 9.3 mg/dl Total Bilirubin 0.5 mg/dl Direct Bilirubin 0.00 mg/dl Indirect Bilirubin 0.5 mg/dl Aspartate Amino Transf (AST/SGOT) 39 IU/L Alanine Aminotransferase (ALT/SGPT) 54 IU/L Alkaline Phosphatase 77 IU/L Total Protein 7.7 g/dl Albumin 4.3 g/dl Globulin 3.40 g/dl Albumin/Globulin Ratio 1.26 Lipase 230 U/L Current Medications Medications Dose Sig/Shari Start Time Status Last (Trade) Ordered Route PRN Stop Time Admin Dose Reason Admin Sodium 1,000 ml @ Q1H STAT 11/10/18 DC 11/10/18 Chloride 1,000 mls/hr IV 12:09 12:19 11/10/18 13:08 Ondansetron 4 mg ONCE STAT 11/10/18 DC 11/10/18 HCl (Zofran IV 12:09 12:19 Inj) 11/10/18 12:10 Ketorolac 30 mg ONCE STAT 11/10/18 DC 11/10/18 Tromethamine IV 12:09 12:19 (Toradol) 11/10/18 12:10 Procedures/MDM ED COURSE: The patient was stable throughout ED course. I kept the patient and/or family informed of laboratory and diagnostic imaging results throughout the ED course. DIAGNOSTIC IMAGING: Read by radiologist. DIAGNOSTIC IMAGING REPORT Patient: YUNG TOBAR : 1985 Age: 33 Sex: M MR #: [id number] DOS: 11/10/18 1209 Ordering MD: BHAVANI CONNOR PA-C Location: E Room/Bed: PROCEDURE: CT Abdomen and Pelvis without contrast. CLINICAL INDICATION: Left flank pain TECHNIQUE: CT scan of the abdomen and pelvis without contrast was performed on a multi-detector high-resolution CT scanner. The patient was scanned without IV contrast. Coronal and sagittal reformatted images were obtained from the axial source images. DICOM images are available. CTDI equals 22.12 mGy, and DLP equals 1169.21 mGy-cm. One or more of the following dose reduction techniques were used: - Automated exposure control. - Adjustment of the mA and/or kV according to patient size. - Use of iterative reconstruction technique. COMPARISON: CT 06/17/2017 FINDINGS: Lower thorax: Normal. Liver: No suspicious focal mass in this noncontrast study. Biliary: Normal gallbladder. No biliary dilatation. Pancreas: Normal. Spleen: Normal. Adrenal Glands: Normal. Genitourinary: Nonobstructing bilateral renal calculi are again noted with the largest in the lower pole of left kidney measures 5 mm. No evidence of hydronephrosis. Bladder is moderately distended, otherwise unremarkable. Gastrointestinal: Stomach is relatively decompressed. Small and large bowel with normal caliber. Normal appendix. Lymph nodes: Normal. Vascular: Normal. Peritoneum/mesentery: Normal. No free fluid or free air. Reproductive organs: Normal. Musculoskeletal: Stable dominant 2.3 cm hyperdense lesion in the proximal left femur. Abdominal wall: Normal IMPRESSION: 1. Nonobstructive bilateral renal calculi largest in the lower pole of left kidney measures 5 mm, unchanged. 2. No mass, adenopathy or acute inflammatory process. RPTAT: EE Physician Beth Date Time Electronically viewed and signed by Physician Beth on 10/24 13:27 rV/ CC: BHAVANI CONNOR PA-C [id number] MEDICAL DECISION MAKING: This is a 33-year-old male who presents the ER for concerns of left-sided flank pain radiating to his left lower quadrant x6 hours. Vital signs were reviewed. Patient is afebrile. IV line was established. Blood work was obtained. CBC showed WBC count of 12.8. CMP showed no evidence of electrolyte abnormalities, severe acidosis, alkalosis, renal failure, or liver disease. Lipase showed no evidence of acute pancreatitis. UA showed 1+ hemoglobin. CT abdomen pelvis showed 1. Nonobstructive bilateral renal calculi largest in the lower pole of left kidney measures 5 mm, unchanged. 2. No mass, adenopathy or acute inflammatory process. At this time, the patient's presentation is most consistent with renal colic. Low suspicion for acute coronary syndrome, AAA, mesenteric ischemia, lower lobe pneumonia, DKA, bowel perforation, cholecystitis, choledocholithiasis, ascending cholangitis, hepatic abscess, pancreatitis, PUD, gastritis, GERD, splenic rupture, diverticulitis, UTI, pyelonephritis, nephrolithiasis, appendicitis, constipation, testicular torsion, epididymitis, urethritis, or prostatitis. Patient was nontoxic, [id number] prior to discharge. PRESCRIPTIONS: Ibuprofen DISCHARGE: At this time, patient is stable for discharge and outpatient management. I have instructed the patient to follow-up with his/her primary care physician in 1-2 days. I have instructed the patient to promptly return to the ER at any time for any new or worsening symptoms including increased pain, nausea, vomiting, diarrhea, fever, weakness or LOC. The patient and/or family expressed understanding of and agreement with this plan. All questions were answered. Home care instructions were provided. Disclaimer: Inadvertent spelling and grammatical errors are likely due to EHR/dictation software use and do not reflect on the overall quality of patient care. Also, please note that the electronic time recorded on this note does not necessarily reflect the actual time of the patient encounter. Departure Diagnosis: Primary Impression: Flank pain Additional Impression: History of nephrolithiasis Condition: Fair Patient Instructions: Flank Pain, Uncertain Cause, Kidney Stone W/ Colic Referrals: [facility] YOU HAVE RECEIVED A MEDICAL SCREENING EXAM AND THE RESULTS INDICATE THAT YOU DO NOT HAVE A CONDITION THAT REQUIRES URGENT TREATMENT IN THE EMERGENCY DEPARTMENT. FURTHER EVALUATION AND TREATMENT OF YOUR CONDITION CAN WAIT UNTIL YOU ARE SEEN IN YOUR DOCTORS OFFICE WITHIN THE NEXT 1-2 DAYS. IT IS YOUR RESPONSIBILITY TO MAKE AN APPOINTMENT FOR FOLOW-UP CARE. IF YOU HAVE A PRIMARY DOCTOR --you should call your primary doctor and schedule an appointment IF YOU DO NOT HAVE A PRIMARY DOCTOR YOU CAN CALL OUR PHYSICIAN REFERRAL HOTLINE AT IF YOU CAN NOT AFFORD TO SEE A PHYSICIAN YOU CAN CHOSE FROM THE FOLLOWING [facility] [address] [facility] [address] [facility] [address] [facility] [address] [facility] [address] [facility]. [facility] [address] [facility]. [facility] YOU HAVE RECEIVED A MEDICAL SCREENING EXAM AND THE RESULTS INDICATE THAT YOU DO NOT HAVE A CONDITION THAT REQUIRES URGENT TREATMENT IN THE EMERGENCY DEPARTMENT. FURTHER EVALUATION AND TREATMENT OF YOUR CONDITION CAN WAIT UNTIL YOU ARE SEEN IN YOUR DOCTORS OFFICE WITHIN THE NEXT 1-2 DAYS. IT IS YOUR RESPONSIBILITY TO MAKE AN APPOINTMENT FOR FOLOW-UP CARE. IF YOU HAVE A PRIMARY DOCTOR --you should call your primary doctor and schedule and appointment IF YOU DO NOT HAVE A PRIMARY DOCTOR YOU CAN CALL OUR PHYSICIAN REFERRAL HOTLINE AT . IF YOU CAN NOT AFFORD TO SEE A PHYSICIAN YOU CAN CHOSE FROM THE FOLLOWING [facility] INSTITUTIONS: [facility] [address] [place] [address] [facility] [address] [place] [address] [facility] [address] [place] [address] Additional Instructions: Call your primary care doctor TOMORROW for an appointment during the next 1-2 days.See the doctor sooner or return here if your condition worsens before your appointment time. BHAVANI CONNOR PA-C Nov 10, 2018 13:50
== END 2018-11-10 13:53 | disposition home or self-care (01) ==
LOC: FTE 11:45
DX: R10.32 Left lower quadrant pain (principal); I10 Essential (primary) hypertension; Z87.442 Personal history of urinary calculi
CPT/HCPCS: 36415; 74176; 80053; 81001; 83690; 85025; 96361; 96374; 96375; 99285; J1885; J2405; J7030